=== PATIENT | male | born 1985 | race Caucasian/White ===

== ENCOUNTER 2016-09-05 22:30 | Emergency (ER) | payer OTHER ==
[~2016-09-05] VITALS: Ht 180.3 cm; Wt 106.1 kg
[2016-09-05 22:30] VITALS: BP 150/89
--- NOTE | 2016-09-05 23:00 | PHYS DOC ---
General Stated Complaint: RIGHT ARM ABCESS Time Seen by MD: 22:50 Source: patient Problems: History of Present Illness Initial Comments Patient here for wound check. Patient had a right axillary abscess drained primary care office earlier today. He had an incision and drainage performed with packing done. He was given a dressing for the area. Over the course evening , he is noted when he thinks might be excessive discharge and drainage from the dressing, they came in to make sure that things are doing well. He's really had minimal pain in the area. He says this is actually feeling better since the incision and drainage procedure. 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 He's had no fever or chills today. No runny nose or sore throat. No chest pain or shortness of breath with this. He's had no nausea or vomiting or abdominal pain. He has no weakness tingling or numbness in the right upper extremity as well. He seen thin bloody discharge but no pus. He has no other history of injury or trauma the area other than the surgical wound displaced earlier today. Other than as described is been nothing done for this and no fractures noted increase or decrease his symptoms. He was given a prescription for an antibiotic but not for pain medicine. He's used his girlfriend's ibuprofen with some good relief of pain. Patient's past medical history is otherwise unremarkable except for previous axillary abscesses. He is a nonsmoker and nonuser of ethanol. He says his tetanus is up-to-date. Past Medical History Medical History: other Social History Smoker: non-smoker Alcohol: none Review of Systems Constitutional: no symptoms reported Respiratory: no symptoms reported Cardiovascular: no symptoms reported Gastrointestinal: no symptoms reported Musculoskeletal: no symptoms reported Skin: see HPI Physical Exam General Appearance: WD/WN, no apparent distress Extremities: non-tender, other Neurologic/Psychiatric: alert, normal mood/affect, oriented x 3 Skin: normal color, warm/dry Comments Generally this is a well-developed well-nourished white male in no acute distress. Vitals are as noted. Pertinent findings on physical exam shows patient have a right axillary abscess with approximately 2 cm horizontal incision, well packed with gauze. The wound appears to be draining well with mild amount of thin serosanguineous material. There is no pus noted. There is no erythema around the edges and the wound appears to be clean. The packing remains in place. Chest is clear cardiovascular exams unremarkable. Patient has full range of motion of the right upper extremity with no distal motor, sensory , or vascular deficits appreciated. The left axilla is clear and shows no signs of abscess. Remainder of physical exam is clinically unremarkable. Orders, Labs, Meds Old charts note no prior ER visits within the current system. I discussed with the patient that his incision looks good at this time. There is packing in place. There is no undue redness swelling or drainage, and certainly no pustular drainage at this time. I did discuss with him that ask her abscesses can have some significant serous drainage and this would not be surprising, but this really looks like I would expect postoperatively. Patient states he's had problems with multiple axillary abscesses before, would like to know if there is anything to be done. I did suggest to him that if this does become recurrent problem might be able to refer her neurosurgeon for some surgical excision, and he states that someone earlier today actually asked if he ever had any sweat glands removed. We discussed continued home care including rest, keep the area clean with soap and water, and that if the packing falls out it's okay, but he should not pull out the packing before his clinic visit. He says he is using his girlfriend's ibuprofen 800s at home for pain, and thinks this will do well for him. He says he had some problems with pain medicine the past would like to stay away from narcotics. He did get a prescription for a box and is encouraged to continue these as well. He also says he has some concerns about possible reflux. He does have subjective risk factors including significant use of coffee, occasional energy drinks, and smoking a pack of cigarette daily. I advised him on lifestyle changes including stopping cigarettes, and this would also be worth following up with his primary care physician. I did advise that ibuprofen might make these reflux symptoms slightly worse. He voices understanding. He does voiced understanding need follow-up on Monday for recheck of his abscess incision and drainage as well as return to the ER sooner as needed for worsening anyway. He looks well, no acute discomfort or stress, okay for discharge home at this time. GRANT CHAU MD Sep 05, 2016 23:00
== END 2016-09-05 23:15 | disposition home or self-care (01) ==
LOC: ER 22:50
DX: L02.411 Cutaneous abscess of right axilla (principal)
CPT/HCPCS: 99281

== ENCOUNTER → 2021-10-08 | Outpatient (CLI) | payer OTHER ==
--- NOTE | 2021-10-08 11:59 | RAD ---
Chest radiograph 10/08/2021 11:40 AM INDICATION: Chest pain COMPARISON: None available TECHNIQUE: Frontal and lateral views of the chest are provided. FINDINGS: The cardiomediastinal silhouette is within normal limits. There are no pleural effusions. There is no pulmonary vascular congestion. There is no pneumothorax. The lungs are clear. No significant osseous abnormality is identified. IMPRESSION: No acute cardiopulmonary process. Electronically signed by: Hazel Omer MD (10/08/2021 11:57 AM) [id number]
== END ==
LOC: RAD 11:30
PROVIDERS: ATTEND Physician Assistant Medical
DX: R07.89 Other chest pain (principal)
CPT/HCPCS: 71046